=== PATIENT | male | born 1970 | race Caucasian/White ===

== ENCOUNTER 2017-10-31 11:46 | Emergency (ER) | payer SELFPAY ==
[~2017-10-31] VITALS: Ht 195.6 cm; Wt 133.8 kg
[~2017-10-31 11:46] MED LIST: FUROSEMIDE40 MG PO; LISINOPRIL2.5 MG PO; SPIRONOLACTONE25 MG PO; TOPROL XL25 MG PO
[2017-10-31] MEDS ORDERED: DEXAMETHASONE SOD PHOS 10 MG/1 ML VIAL INJ ONE (12:00)
[2017-10-31] MEDS ORDERED: MORPHINE SULFATE INJ 4 MG/ML INJ IV STA (12:07)
[2017-10-31] MEDS ORDERED: ONDANSETRON HCL INJ 2 MG/ML VIAL IV STA (12:07)
[2017-10-31 12:38] LABS: BASOPHILS # (AUTO) 0.1 (0.0-0.1); BASOPHILS % 0.6 % (0.0-1.0); EOSINOPHILS # (AUTO) 0.1 (0.0-0.4); EOSINOPHILS % 1.3 % (0.0-6.0); HEMATOCRIT 39.9 % (38.2-49.6); HEMOGLOBIN 12.8 g/dL (14.0-18.0); LYMPHOCYTES # (AUTO) 1.1 (1.0-3.2); LYMPHOCYTES % 12.2 % (18.0-39.1); MEAN CORPUSCULAR HEMOGLOBIN 26.8 pg (28-32); MEAN CORPUSCULAR HGB CONC 32.1 g/dL (31-35); MEAN CORPUSCULAR VOLUME 83.5 fL (81-99); MONOCYTES # (AUTO) 1.1 (0.2-0.8); MONOCYTES % 12.5 % (4.4-11.3); NEUTROPHILS # (AUTO) 6.4 (2.1-6.9); NEUTROPHILS % 73.1 % (38.7-80.0); PLATELET COUNT 287 x10e3/uL (140-360); RED BLOOD COUNT 4.78 x10e6/uL (4.3-5.7); RED CELL DISTRIBUTION WIDTH 15.4 % (11.7-14.4)
[2017-10-31 13:00] LABS: ALANINE AMINOTRANSFERASE 13 IU/L (0-55); ALBUMIN 3.2 g/dL (3.5-5.0); ALBUMIN/GLOBULIN RATIO 0.8 (0.8-2.0); ALKALINE PHOSPHATASE 58 IU/L (40-150); ANION GAP 14.8 mmol/L (8-16); BLOOD UREA NITROGEN 13 mg/dL (7-26); BUN/CREATININE RATIO 13 (6-25); CALCIUM 9.5 mg/dL (8.4-10.2); CARBON DIOXIDE 23 mmol/L (22-29); CHLORIDE 104 mmol/L (98-107); CREATININE, SERUM 1.02 mg/dL (0.72-1.25); EST GLOMERULAR FILTRATION RATE > 60 ML/MIN (60-); GLUCOSE 98 mg/dL (74-118); POTASSIUM 3.8 mmol/L (3.5-5.1); SODIUM 138 mmol/L (136-145)
[2017-10-31] MEDS ORDERED: HYDROMORPHONE 1MG/1ML INJ IV ONE (14:00)
[2017-10-31] MEDS ORDERED: KETOROLAC TROMETHAMINE 30 MG/ML VIAL IV ONE (15:00)
[2017-10-31] MEDS ORDERED: HYDROCODONE/APAP 10MG-325MG TAB PO ONE (16:00)
[2017-10-31 16:24] VITALS: BP 150/115
== END 2017-10-31 16:29 | disposition home or self-care (01) ==
LOC: ER 11:46
DX: M25.571 Pain in right ankle and joints of right foot (principal); M25.572 Pain in left ankle and joints of left foot; M10.071 Idiopathic gout, right ankle and foot; M10.072 Idiopathic gout, left ankle and foot; M10.061 Idiopathic gout, right knee; I10 Essential (primary) hypertension; I50.9 Heart failure, unspecified; Z95.5 Presence of coronary angioplasty implant and graft; Z97.0 Presence of artificial eye
CPT/HCPCS: 36415; 80053; 84550; 85025; 96372; 96374; 96375; 99284; J1100; J1170; J1885; J2270; J2405

== ENCOUNTER 2018-04-07 05:36 | Emergency (ER) | payer BC, OTHER ==
[~2018-04-07] VITALS: Ht 195.6 cm; Wt 133.8 kg
--- OUTSIDE RECORDS SUMMARY | 2018-04-07 05:39 | XMS REPORT ---
Author Author [facility] Address Unknown Phone Unavailable Care Team Providers Care Platform Inspector Name Role Phone Unavailable Unavailable Payers Payer Name Policy Type Policy Number Effective Date Expiration Date Problems This patient has no known problems. Allergies, Adverse Reactions, Alerts Allergy Name Allergy Type Status Severity Reaction(s) Onset Date Inactive Date Treating Clinician Comments No Known Allergies DA Active U 2018-03-17 00:00:00 No Known Allergies DA Active U 2014-05-14 00:00:00 Medications This patient has no known medications.
[2018-04-07] MEDS ORDERED: KETOROLAC TROMETHAMINE 60 MG/2 ML VIAL IM ONE (06:00)
[2018-04-07 06:11] VITALS: BP 148/113
[2018-04-11] MEDS ORDERED: PLAVIX75 MG PO (21:49)
[2018-04-11] MEDS ORDERED: DIGOXIN250 MCG PO (21:49)
[2018-04-11] MEDS ORDERED: INDOMETHACIN50 MG PO (21:49)
== END 2018-04-07 06:31 | disposition home or self-care (01) ==
LOC: ER 05:36
DX: M25.572 Pain in left ankle and joints of left foot (principal); M25.571 Pain in right ankle and joints of right foot; M10.072 Idiopathic gout, left ankle and foot; M10.071 Idiopathic gout, right ankle and foot
CPT/HCPCS: 99282; J1885

== ENCOUNTER 2018-05-10 14:22 | Emergency (ER) | payer OTHER ==
[~2018-05-10] VITALS: Ht 195.6 cm; Wt 120.2 kg
[~2018-05-10 14:22] MED LIST changes: +DIGOXIN250 MCG PO; +INDOMETHACIN50 MG PO; +PLAVIX75 MG PO
[2018-05-10] MEDS ORDERED: HYDROCODONE/APAP 10MG-325MG TAB PO NR (15:15)
[2018-05-10] MEDS ORDERED: DEXAMETHASONE SOD PHOS 10 MG/1 ML VIAL IM NR (15:15)
[2018-05-10 16:25] VITALS: BP 150/100
== END 2018-05-10 16:20 | disposition home or self-care (01) ==
LOC: ER 14:22
DX: M25.572 Pain in left ankle and joints of left foot (principal); M25.571 Pain in right ankle and joints of right foot; M10.072 Idiopathic gout, left ankle and foot; M10.071 Idiopathic gout, right ankle and foot; R26.2 Difficulty in walking, not elsewhere classified; I10 Essential (primary) hypertension; J44.9 Chronic obstructive pulmonary disease, unspecified
CPT/HCPCS: 99282; J1100

== ENCOUNTER 2018-06-28 09:40 | Emergency (ER) | payer OTHER ==
[~2018-06-28] VITALS: Ht 195.6 cm; Wt 115.7 kg
[2018-06-28] MEDS ORDERED: DEXAMETHASONE SOD PHOS 10 MG/1 ML VIAL IM ONE (10:45)
[2018-06-28] MEDS ORDERED: HYDROCODONE/APAP 10MG-325MG TAB PO ONE (10:45)
[2018-06-28] MEDS ORDERED: INDOMETHACIN50 MG PO (10:47)
[2018-06-28] MEDS ORDERED: COLCRYS0.6 MG PO (10:47)
[2018-06-28] MEDS ORDERED: ULTRAM50 MG PO (10:47)
== END 2018-06-28 11:49 | disposition home or self-care (01) ==
LOC: ER 09:40
DX: M79.671 Pain in right foot (principal); M10.071 Idiopathic gout, right ankle and foot; I10 Essential (primary) hypertension; I25.10 Atherosclerotic heart disease of native coronary artery without angina pectoris; I50.9 Heart failure, unspecified
CPT/HCPCS: 99283; J1100

== ENCOUNTER 2018-10-05 09:42 | Emergency (ER) | payer OTHER ==
[~2018-10-05] VITALS: Ht 195.6 cm; Wt 115.7 kg
[~2018-10-05 09:42] MED LIST changes: +COLCRYS0.6 MG PO; +ULTRAM50 MG PO
[2018-10-05] MEDS ORDERED: HYDROCODONE/APAP 5MG-325MG TAB PO ONE (10:15)
[2018-10-05] MEDS ORDERED: DEXAMETHASONE SOD PHOS 10 MG/1 ML VIAL IM ONE (10:15)
[2018-10-05] MEDS ORDERED: ULTRAM50 MG PO (10:26)
[2018-10-05] MEDS ORDERED: INDOMETHACIN50 MG PO (10:26)
[2018-10-05] MEDS ORDERED: COLCRYS0.6 MG PO (10:26)
== END 2018-10-05 11:25 | disposition home or self-care (01) ==
LOC: ER 09:42
DX: M79.672 Pain in left foot (principal); M1A.0720 Idiopathic chronic gout, left ankle and foot, without tophus (tophi); I10 Essential (primary) hypertension; I50.9 Heart failure, unspecified
CPT/HCPCS: 99282; J1100

== ENCOUNTER 2019-07-05 04:21 | Emergency (ER) | payer OTHER ==
[~2019-07-05] VITALS: Ht 195.6 cm; Wt 115.7 kg
[2019-07-05] MEDS ORDERED: DEXAMETHASONE SOD PHOS 10 MG/1 ML VIAL IM ONE (04:30)
[2019-07-05] MEDS ORDERED: DEXAMETHASONE SOD PHOS 10 MG/1 ML VIAL ONE (04:34)
[2019-07-05 04:35] VITALS: BP 168/98
== END 2019-07-05 04:42 | disposition home or self-care (01) ==
LOC: ER 04:21
DX: M79.671 Pain in right foot (principal); M10.071 Idiopathic gout, right ankle and foot
CPT/HCPCS: 99283; J1100

== ENCOUNTER 2019-10-18 12:22 | Emergency (ER) | payer OTHER ==
[~2019-10-18] VITALS: Ht 195.6 cm; Wt 115.7 kg
[2019-10-18] MEDS ORDERED: DEXAMETHASONE SOD PHOS 10 MG/1 ML VIAL IM ONE (13:00)
[2019-10-18] MEDS ORDERED: DEXAMETHASONE 10MG/ML PF INJ IM ONE (13:30)
[2019-10-18] MEDS ORDERED: KETOROLAC TROMETHAMINE 60 MG/2 ML VIAL IM ONE (13:30)
--- NOTE | 2019-10-18 13:37 | Emergency Department Note ---
History of Present Illnes History of Present Illness Chief Complaint: General Medicine Complaints History of Present Illness This is a 49 year old male c/o gout to right ankle and right big toe since mon hx of gout. Historian: Patient Arrival Mode: Car Wellness Rn Required: No Onset (how long ago): day(s) (3) Location: RIGHT ANKLE AND GREAT TOE Quality: PAIN Radiation: Reports non-radiation Severity: moderate Onset quality: gradual Timing of current episode: constant Progression: worsening Chronicity: recurrent Context: Denies recent illness Relieving factors: none Exacerbating factors: none Associated symptoms: Reports denies other symptoms Treatments prior to arrival: none Past Medical/Family History Physician Review I have reviewed the patient's past medical and family history. Any updates have been documented here. Past Medical History Recent Fever: No Clinical Suspicion of Infectio: No New/Unexplained Change in Ment: No Past Medical History: Hypertension, CHF Other Medical History: GOUT Past Surgical History: Hernia Repair Other Surgery: LEFT EYE SURGERY LEFT EYE PROSTHESIS Social History Physically hurt or threatened: No Other Last Tetanus: 2018 Review of Systems Review of Systems Constitutional: Reports no symptoms EENTM: Reports no symptoms Cardiovascular: Reports no symptoms Respiratory: Reports no symptoms Gastrointestinal: Reports no symptoms Genitourinary: Reports no symptoms Musculoskeletal: Reports as per HPI Integumentary: Reports no symptoms Neurological: Reports no symptoms Psychological: Reports no symptoms Endocrine: Reports no symptoms Hematological/Lymphatic: Reports no symptoms Physical Exam Related Data Allergies: Coded Allergies: No Known Drug Allergies (Verified Allergy, Mild, 06/28/18) Triage Vital Signs Vital Signs Date Time Temp Pulse Resp B/P (MAP) Pulse Ox O2 Delivery O2 Flow Rate FiO2 10/18/19 12:56 99.1 100 18 181/109 100 Room Air Vital signs reviewed: Yes Physical Exam CONSTITUTIONAL Constitutional: Present well-developed, Present well-nourished HENT HENT: Present normocephalic, Present atraumatic, Present oropharynx [place] ar/moist, Present nose normal HENT L/R: Present left ext ear normal, Present right ext ear normal EYES Eyes: Reports PERRL, Reports conjunctivae normal NECK Neck: Present ROM normal PULMONARY Pulmonary: Present effort normal, Present breath sounds normal CARDIOVASCULAR Cardiovascular: Present regular rhythm, Present heart sounds normal, Present capillary refill normal, Present normal rate GASTROINTESTINAL Abdominal: Present soft, Present nontender, Present bowel sounds normal GENITOURINARY Genitourinary: Present exam deferred SKIN Skin: Present warm, Present dry MUSCULOSKELETAL Musculoskeletal: Present ROM normal NEUROLOGICAL Neurological: Present alert, Present oriented x 3, Present no gross motor or sensory deficits PSYCHOLOGICAL Psychological: Present mood/affect normal, Present judgement normal Assessment & Plan Medical Decision Making MDM GOUT, NO TRAUMA, ABLE TO MOVE JOINT AROUND (NO SEPTIC ARTHRITIS), VITALS GOOD Reassessment Reassessment IM DECADRON, DC WITH TYL #3 AND PREDNISONE 60 MG PO X 4 D Assessment & Plan Final Impression: (1) Gout attack Depart Disposition: HOME, SELF-CARE Last Vital Signs Date Time Temp Pulse Resp B/P (MAP) Pulse Ox O2 Delivery O2 Flow Rate FiO2 10/18/19 12:56 99.1 100 18 181/109 100 Room Air Home Meds Active Scripts Tramadol Hcl (ULTRAM) 50 Mg Tablet, 50 MG PO Q6H PRN for Mild Pain (1-3) or Fever>100.8, #20 TAB Prov:LYNNE,VAMSI L SPRAY APPLICATOR 10/05/18 Indomethacin (INDOMETHACIN) 50 Mg Capsule, 50 MG PO TID PRN for Mild Pain (1-3) or Fever>100.8, #30 MG Prov:LYNNE,VAMSI L SPRAY APPLICATOR 10/05/18 Colchicine (COLCRYS) 0.6 Mg Tablet, 0.6 MG PO DAILY, #30 TAB Prov:LYNNEVAMSI L SPRAY APPLICATOR 10/05/18 Colchicine (COLCRYS) 0.6 Mg Tablet, 0.6 MG PO DAILY, #30 TAB Prov:LYNNE,VAMSI L SPRAY APPLICATOR 06/28/18 Indomethacin (INDOMETHACIN) 50 Mg Capsule, 50 MG PO TID for pain, #20 MG Prov:LYNNE,VAMSI L SPRAY APPLICATOR 06/28/18 Tramadol Hcl (ULTRAM) 50 Mg Tablet, 50 MG PO Q6H PRN for PAIN, #20 TAB Prov:LYNNEBEE LOVEO L SPRAY APPLICATOR 06/28/18 Reported Medications Clopidogrel Bisulfate* (PLAVIX) 75 Mg Tablet, 75 MG PO HS, #30 TAB 04/11/18 Digoxin (DIGOXIN) 250 Mcg Tablet, 0.25 MG PO HS 04/11/18 Indomethacin (INDOMETHACIN) 50 Mg Capsule, 50 MG PO Q8H PRN for PAIN 04/11/18 Lisinopril (LISINOPRIL) 2.5 Mg Tablet, 2.5 MG PO HS, #30 TAB 02/24/16 Metoprolol Succinate (TOPROL XL) 25 Mg Tab.er.24h, 25 MG PO BID, #30 TAB 02/24/16 Spironolactone (SPIRONOLACTONE) 25 Mg Tablet, 25 MG PO DAILY, #60 TAB 02/21/16 Furosemide (FUROSEMIDE) 40 Mg Tablet, 80 MG PO BID, #30 TAB 02/21/16 Medications in the ED Dexamethasone Sodium Phosphate 10 mg ONCE ONCE IM ; Start 10/18/19 at 13:00; Stop 10/18/19 at 13:01; Status UNV Dexamethasone Sodium Phosphate 10 mg ONCE ONCE IM Last administered on 10/18/19at 13:28; Admin Dose 10 MG; Start 10/18/19 at 13:30; Stop 10/18/19 at 13:31 Ketorolac Tromethamine 60 mg ONCE ONCE IM Last administered on 10/18/19at 13:28; Admin Dose 60 MG; Start 10/18/19 at 13:30; Stop 10/18/19 at 13:31; Status UNV HERMAN DIALLO MD Oct 18, 2019 13:37
== END 2019-10-18 13:43 | disposition home or self-care (01) ==
LOC: ER 13:09
DX: M10.9 Gout, unspecified (principal); I10 Essential (primary) hypertension; I50.9 Heart failure, unspecified; Z90.01 Acquired absence of eye
CPT/HCPCS: 99282; J1885